=== PATIENT | female | born 1945 | race Caucasian/White ===

== ENCOUNTER 2022-06-13 13:10 | Outpatient (CLI) | payer MEDICARE, SELFPAY | END 2022-06-13 13:11 | disposition home or self-care (01) | PROVIDERS: PCP Family Medicine; Visit Provider Family Medicine | DX: Z00.00 Encounter for general adult medical examination without abnormal findings (principal); I10 Essential (primary) hypertension; E78.5 Hyperlipidemia, unspecified | CPT/HCPCS: 80048; 80061; 84460 ==

== ENCOUNTER 2022-11-07 13:03 | Outpatient (CLI) | payer MEDICARE, SELFPAY ==
--- NOTE | 2022-11-07 13:40 | CRLHL7_ITS ---
For Patients: As a result of the Century Cures Act, medical imaging exams and procedure reports are released immediately into your electronic medical record. You may view this report before your referring provider. If you have questions, please contact your health care provider. BILATERAL SCREENING MAMMOGRAM WITH COMPUTER-AIDED DETECTION AND TOMOSYNTHESIS TECHNIQUE: CC and MLO views were obtained. These mammographic images have been obtained using full-field digital technique. These mammographic images were interpreted with the benefit of computer-aided detection. Breast Tomosynthesis was used in this interpretation. COMPARISON FILM: No previous available. FINDINGS: The breasts are extremely dense, which lowers the sensitivity of mammography IMPRESSION: There is no radiographic evidence for malignancy. ASSESSMENT: BI-RADS Category 2: Benign RECOMMENDATION: Routine screening mammogram in 1 year. A lay language report of this examination will be provided to the patient. Leon Montero M.D. Diagnostic Radiologist [email or web address] TUCKER/Dictated by: Leon Montero MD @ 11/11/2022 11:46:00 AM (Electronically Signed)
== END 2022-11-07 13:04 | disposition home or self-care (01) ==
LOC: MAMMO 13:04
PROVIDERS: PCP Family Medicine; Visit Provider Family Medicine
DX: Z12.31 Encounter for screening mammogram for malignant neoplasm of breast (principal); R92.2 Inconclusive mammogram
CPT/HCPCS: 77063; 77067

== ENCOUNTER 2023-12-11 13:10 | Outpatient (CLI) | payer MEDICARE, SELFPAY | END 2023-12-11 13:11 | disposition home or self-care (01) | LOC: NFLDREF 12-15 14:43 | PROVIDERS: PCP Family Medicine; Referring Provider Family Medicine; Visit Provider Internal Medicine | DX: E78.5 Hyperlipidemia, unspecified (principal); I10 Essential (primary) hypertension | CPT/HCPCS: 80053; 80061 ==

== ENCOUNTER 2023-12-17 13:11 | Outpatient (CLI) | payer MEDICARE, SELFPAY ==
--- OUTSIDE RECORDS SUMMARY | 2023-12-17 13:15 | XMS_ITS | Referral Summary ---
Author Organization [facility] Address [address] [place] [address] Care Team Providers Care Scanning Clerk Name Role Phone Ismael Meadows MD Primary Care Provider +1- [phone] Allergies Active Allergy Reactions Criticality Noted Date Comments Contrast Dye 01/14/2016 Tetracycline Rash Low 01/14/2016 Medications estradiol (ESTRACE) 0.5 MG tablet Take 0.5 mg by mouth daily Active rosuvastatin (CRESTOR) 5 MG tablet Take 5 mg by mouth daily Active amLODIPine (NORVASC) 10 MG tablet Take 10 mg by mouth daily Active multivitamin w/minerals (MULTI-VITAMIN) tablet Take 1 tablet by mouth daily Active aspirin 81 MG EC tablet Take 81 mg by mouth daily Active Ascorbic Acid (VITAMIN C) 500 MG CAPS Take 500 mg by mouth daily (with breakfast) Active Active Problems Problem Noted Date Diagnosed Date Syncope 06/18/2021 Bilateral hand pain 01/14/2016 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 01/14/2016 Social History Tobacco Use Types Packs/Day Years Used Date Smoking Tobacco: Never Smokeless Tobacco: Never Alcohol Use Standard Drinks/Week Comments Yes 4 (1 standard drink = 0.6 oz pur e alcohol) Adolescent Education Answer Date Record ed Getting School Help Needed Not on file 11/23 Comments Unknown Sex and Gender Information Value Date Recorded Sex Assigned at Not on file Legal Sex Female 3:21 AM TYPE COPY EXAMINER Gender Identity Not on file Sexual Orientation Not on file Last Filed Vital Signs Vital Sign Reading Time Taken Comments Blood Pressure 130/63 06/19/2021 8:06 AM CDT Pulse 66 06/19/2021 8:06 AM CDT Temperature 36.4 ??C (97.6 ??F) 06/19/2021 8:06 AM CD T Respiratory Rate 18 06/19/2021 8:06 AM CDT Oxygen Saturation 97% 06/19/2021 8:06 AM CDT Inhaled Oxygen Concentration - - Weight 63.3 kg (139 lb 9.6 oz) 06/18/2021 2:36 P M CDT Height 162.6 cm (5' 4) 06/18/2021 2:36 PM CDT Body Mass Index 23.96 06/18/2021 2:36 PM CDT Plan of Treatment Not on file Procedures Procedure Name Priority Date/Time Associated Diagnosis Comments COMPREHENSIVE METABOLIC PANEL STAT 06/18/2021 4:31 PM CDT from Last 3 Months or Most Recently Relevant to Health Maintenance Results * Comprehensive metabolic panel (06/18/2021 4:31 PM CDT) Sodium 141 136 - 145 mmol/L 06/18/2021 4:59 PM [facility] Potassium 3.9 3.5 - 5.0 mmol/L 06/18/2021 4:59 PM [facility] Chloride 105 98 - 107 mmol/L 06/18/2021 4:59 PM [facility] Carbon Dioxide (CO2) 23 22 - 31 mmol/L 06/18/2021 4:59 PM [facility] Anion Gap 13 5 - 18 mmol/L 06/18/2021 4:59 PM [facility] Urea Nitrogen 19 8 - 28 mg/dL 06/18/2021 4:59 PM [facility] Creatinine 0.76 0.60 - 1.10 mg/dL 06/18/2021 4:59 PM [facility] Calcium 10.4 8.5 - 10.5 mg/dL 06/18/2021 4:59 PM [facility] Glucose 94 70 - 125 mg/dL 06/18/2021 4:59 PM [facility] Alkaline Phosphatase 112 45 - 120 U/L 06/18/2021 4:59 PM [facility] AST 25 0 - 40 U/L 06/18/2021 4:59 PM [facility] ALT 17 0 - 45 U/L 06/18/2021 4:59 PM CDT [facility] Protein Total 7.5 6.0 - 8.0 g/dL 06/18/2021 4:59 PM CDT [facility] Albumin 4.3 3.5 - 5.0 g/dL 06/18/2021 4:59 PM CDT [facility] Bilirubin Total 0.4 0.0 - 1.0 mg/dL 06/18/2021 4:59 PM CDT [facility] GFR Estimate 80 >60 mL/min/1.7 3m2 06/18/2021 4:59 PM [facility] Comment:Effective January 242020 eGFRcr in adults is calculated using the 2020 CKD-EPI creatinine equation which includes age and gender (Manager Game et al., NEJM, DOI: 10.1056/UWCAex9617496) Blood VENOUS LINE / Unknown Venipuncture / Unknown 06/18/2021 4:31 PM CDT 06/18/2021 4:38 PM CDT us Yong Rentreia MD LAB - BLOOD ORDERABLES Final Re sult [facility] [address] [address], [facility] [phone] from Last 3 Months or Most Recently Relevant to Health Maintenance Insurance [facility] MEDICARE Advance Directives For more information, please contact: [phone] * Full Code (Latest Code Status on File) Date Activated Date Inactivated Comments 06/18/2021 10:24 PM 06/19/2021 6:58 PM All basic a nd advanced life-sustaining interventions are performed as appropriate Question Answer Comments Code status determined by: Discussion with eleni nt/ legal decision maker Care Teams Scanning Clerk Relationship Specialty Start Date End Date Ismael Meadows MD [address] [place] [address] PCP - General Family Medicine 06/19/21
--- OUTSIDE RECORDS SUMMARY | 2023-12-17 13:15 | XMS_ITS | Referral Summary ---
Author Organization [facility] Address [address] [place] [address] Care Team Providers Care Slitting Machine Operator Name Role Phone Unknown, Md Primary Care Provider Unavailabl e Unknown, Md Unavailable Unavailable Allergies Active Allergy Reactions Criticality Noted Date Comments Iodinated Contrast Media Hives High 07/30/2009 Lisinopril Cough 01/10/2021 Tetracycline Rash Medium 07/30/2009 Medications Medication Sig Dispensed Refills Start Date End Date Status vitamin e (AQUASOL E) 400 unit oral capsule Daily. Act nikia aspirin 81 mg oral enteric coated tablet Daily. 05/31/2010 Act nikia multivitamin (MULTI-DAY) oral tablet Daily. 05/31/2010 A ctive calcium carbonate-vitamin D3 500 mg, 1250 mg,-200 units (OSCAL-D) oral tablet take 1 by Oral route every day Active fish oil (FISH OIL) 360-1,200 mg oral Cap Daily. Act nikia cholecalciferol (VITAMIN D3) 25 mcg (1,000 unit) oral Cap Take 1,000 Units by mouth once daily. Active acetaminophen (TYLENOL) 500 mg oral tablet Take 1,000 mg by mouth every 6 (six) hours as needed. Active amLODIPine (NORVASC) 10 mg oral tabletIndications:Essen tial hypertension Take 1 tablet (10 mg) by mouth once daily. 30 tablet 01/30/2022 Active rosuvastatin (CRESTOR) 5 mg oral tabletIndications:Other hyperlipidemia Take 1 tablet (5 mg) by mouth every morning. 30 tablet 01/30/2022 Active estradioL (ESTRACE) 0.5 mg oral tabletIndications:Estro gen deficiency,Symptomatic menopausal or female climacteric states Take 1 tablet (0.5 mg) by mouth once daily. 30 tablet 01/30/2022 Active Active Problems Problem Noted Date Diagnosed Date Osteopenia, unspecified location 10/06/2019 JUAN ADVID-inhibitor cough 10/06/2019 Bunion 04/09/2018 Cataract 04/09/2018 Cystocele, midline 04/09/2018 Estrogen deficiency 04/09/2018 Heart palpitations 04/09/2018 Symptomatic menopausal or female climacteric sta marin 04/09/2018 Other hyperlipidemia 08/11/2012 Essential hypertension 02/23/2009 Gastroesophageal reflux disease 02/23/2009 Immunizations Name Administration Dates Next Due Influenza High Dose (Fluzone Quadrivalent PF) 11/18/2016,11/07/2014 Influenza recombinant (FluBl ok Quadrivalent PF) 11/25/2012,11/08/2009 Influenza split virus quadrivalent 11/20,11/26/2012,11/12/2011,2010,11/08/2009,11/09/2008,11/26/2007 Pfizer 12+ Yrs Monovalent CO VID Vaccine (purple cap) 05/21/2020,04/29/2020 Pneumococcal PCV13 08/23/2014 Pneumococcal PPSV23 07/01/2007 Tdap 07/31/2010 Zoster Live 07/01/2007 Social History Tobacco Use Types Packs/Day Years Used Date Smoking Tobacco: Never Smokeless Tobacco: Never Alcohol Use Standard Drinks/Week Comments Yes 0 (1 standard drink = 0.6 oz pur e alcohol) Sex and Gender Information Value Date Recorded Sex Assigned at Not on file Gender Identity Not on file Sexual Orientation Not on file Last Filed Vital Signs Vital Sign Reading Time Taken Comments Blood Pressure 140/76 01/10/2021 10:56 AM EMPLOYEE RELATIONS DIRECTOR Pulse 74 01/10/2021 10:16 AM EMPLOYEE RELATIONS DIRECTOR Temperature - - Respiratory Rate - - Oxygen Saturation 97% 01/10/2021 10:16 AM EMPLOYEE RELATIONS DIRECTOR Inhaled Oxygen Concentration - - Weight 64 kg (141 lb) 01/10/2021 10:16 AM EMPLOYEE RELATIONS DIRECTOR Height 160.7 cm (5' 3.25) 01/10/2021 10:[address] Body Mass Index 24.78 01/10/2021 10:16 AM EMPLOYEE RELATIONS DIRECTOR Plan of Treatment Not on file Procedures Procedure Name Priority Date/Time Associated Diagnosis Comments XR BONE DENSITY-SPINE,HIP & FOREARM Routine 01/15/2021 12:48 PM EMPLOYEE RELATIONS DIRECTOR Osteopenia, unspecified location from Last 3 Months or Most Recently Relevant to Health Maintenance Results * XR BONE DENSITY-SPINE,HIP & FOREARM (01/15/2021 12:48 PM EMPLOYEE RELATIONS DIRECTOR) Anatomical Region Laterality Modality Extremity Radiographic Shannon ging 01/15/2021 12:5 6 PM EMPLOYEE RELATIONS DIRECTOR Impressions 01/15/2021 12:57 PM EMPLOYEE RELATIONS DIRECTOR IMPRESSION: Osteopenia. WHO Classification of bone density for post-menopausal women, and men over 50 years of age, is as follows: Normal bone density: T score greater than -1.0. Osteopenia (Low bone density): T score between -1.0 and -2.5. Osteoporosis: T score less than -2.5. ?? REPORT SIGNED BY DR. Alexander Dos Santos Narrative 01/15/2021 12:57 PM EMPLOYEE RELATIONS DIRECTOR EXAM: DEXA BONE DENSITY STUDY DATE: 01/15/2021 12:20 PM COMPARISON: 10/11/2018 CLINICAL DATA: Osteoporosis screening. Post-menopausal. TECHNIQUE: A bone density evaluation using DEXA (dual energy x-ray absorptiometry) was performed for your patient at the [facility] in [place] using a Hologic (Discovery) unit. FINDINGS: Lumbar Spine (L1 and L2): Average BMD (g/cm2): 1.044 T-score: 0.6 Z-score: 3.0 Left Femoral Neck: Average BMD (g/cm2): 0.713 T-score: -1.2 Z-score: 1.0 Left Forearm: Average BMD (g/cm2): 0.534 T-score: -0.3 Z-score: 2.6 Vertebral assessment: frontal and lateral scanograms demonstrate no compression deformities in the thoracic or lumbar spine. Compared to the previous study, the measured bone density in the upper lumbar spine has increased by 4%, the measured bone density in the left hip has decreased by 2%, and the measured bone density in the left forearm has not changed significantly. FRAX (10-year Fracture Risk calculated for an untreated patient): the risks of a major osteoporotic fracture and a hip fracture are, respectively, 12% and 2%. Procedure Note Alexander Dos Santos MD - 01/15/2021 EXAM: DEXA BONE DENSITY STUDY DATE: 01/15/2021 12:20 PM COMPARISON: 10/11/2018 CLINICAL DATA: Osteoporosis screening. Post-menopausal. TECHNIQUE: A bone density evaluation using DEXA (dual energy x- rayabsorptiometry) was performed for your patient at the [facility] using a Hologic (Discovery) unit. FINDINGS: Lumbar Spine (L1 and L2): Average BMD (g/cm2): 1.044 T-score: 0.6 Z-score: 3.0 Left Femoral Neck: Average BMD (g/cm2): 0.713 T-score: -1.2 Z-score: 1.0 Left Forearm: Average BMD (g/cm2): 0.534 T-score: -0.3 Z-score: 2.6 Vertebral assessment: frontal and lateral scanograms demonstrate nocompression deformities in the thoracic or lumbar spine. Compared to theprevious study, the measured bone density in the upper lumbar spine hasincreased by 4%, the measured bone density in the left hip has decreasedby 2%, and the measured bone density in the left forearm has not changedsignificantly. FRAX (10-year Fracture Risk calculated for an untreated patient): therisks of a major osteoporotic fracture and a hip fracture are,respectively, 12% and 2%. IMPRESSION IMPRESSION: Osteopenia. WHO Classification of bone density for post-menopausal women, and men over50 years of age, is as follows: Normal bone density: T score greater than -1.0. Osteopenia (Low bone density): T score between -1.0 and -2.5. Osteoporosis: T score less than -2.5. REPORT SIGNED BY DR. Alexander Dos Santos Ismael Meadows MD XRAY ORDERABLE from Last 3 Months or Most Recently Relevant to Health Maintenance Care Teams Slitting Machine Operator Relationship Specialty Start Date End Date Unknown, NO ADDRESS/PHONE/FAX AFFILIATED PCP - General 12/18/22 Unknown, NO ADDRESS/PHONE/FAX AFFILIATED PCP - Primary Care Clinic 12/18/22
--- OUTSIDE RECORDS SUMMARY | 2023-12-17 13:15 | XMS_ITS | Clinical Summary ---
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 Gender Identity Not on file Sexual Orientation [...] 06/18/2021 2:36 PM CDT Plan of Treatment Health Maintenance Due Date Last Done Comments ADVANCE CARE PLANNING 1945 ANNUAL REVIEW OF HM ORDERS 1945 DEXA 1945 LIPID 1943 ZOSTER IMMUNIZATION (2 of 3) 08/26/2007 07/01/2007 FALL RISK ASSESSMENT 2008 RSV VACCINE (1 - 1-dose 75+ series) 2018 Pneumococcal Vaccine: 65+ Years (3 of 3 - PPSV23 or PCV20) 08/24/2019 08/23/2014, 07/01/2007 DTAP/TDAP/TD IMMUNIZATION (2 - Td or Tdap) 07/31/2020 07/31/2010 MEDICARE ANNUAL WELLNESS VISIT 01/10/2022 01/10/2021, 10/06/2019, 04/13/2018 PHQ-2 (once per calendar year) 2023 COVID-19 Vaccine (3 - season) 2023 05/21/2020, 04/29/2020 INFLUENZA VACCINE (#1) 2023 , 11/25/2019, 12/07/2018, Additional history exists GLUCOSE 06/18/2024 06/18/2021, 06/01/2006 HPV IMMUNIZATION Aged Out No longer e ligible based on patient's age to complete this topic MENINGITIS IMMUNIZATION Aged Out No l onger eligible based on patient's age to complete this topic RSV MONOCLONAL ANTIBODY Aged Out No l onger eligible based on patient's age to complete this topic Procedures Procedure Name Priority Date/Time Associated Diagnosis Comments COMPREHENSIVE METABOLIC PANEL STAT 06/18/2021 4:31 PM CDT from Last 3 Months or Most Recently Relevant to Health Maintenance Results * Comprehensive metabolic panel (06/18/2021 4:31 PM CDT) Sodium 141 136 - 145 mmol/L 06/18/2021 4:59 PM [facility] Potassium 3.9 3.5 - 5.0 mmol/L 06/18/2021 4:59 PM [facility] Chloride 105 98 - 107 mmol/L 06/18/2021 4:59 PM [facility] Carbon Dioxide (CO2) 23 22 - 31 mmol/L 06/18/2021 4:59 PM [facility] Anion Gap 13 5 - 18 mmol/L 06/18/2021 4:59 PM [facility] Urea Nitrogen 19 8 - 28 mg/dL 06/18/2021 4:59 PM [facility] Creatinine 0.76 0.60 - 1.10 mg/dL 06/18/2021 4:59 PM [facility] Calcium 10.4 8.5 - 10.5 mg/dL 06/18/2021 4:59 PM [facility] Glucose 94 70 - 125 mg/dL 06/18/2021 4:59 PM [facility] Alkaline Phosphatase 112 45 - 120 U/L 06/18/2021 4:59 PM [facility] AST 25 0 - 40 U/L 06/18/2021 4:59 PM [facility] ALT 17 0 - 45 U/L 06/18/2021 4:59 PM [facility] Protein Total 7.5 6.0 - 8.0 g/dL 06/18/2021 4:59 PM [facility] Albumin 4.3 3.5 - 5.0 g/dL 06/18/2021 4:59 PM [facility] Bilirubin Total 0.4 0.0 - 1.0 mg/dL 06/18/2021 4:59 PM [facility] GFR Estimate 80 >60 mL/min/1.7 3m2 06/18/2021 4:59 PM [facility] Comment:Effective January 242020 eGFRcr in adults is calculated using the 2020 CKD-EPI creatinine equation which includes age and gender (Alivia et al., NEJM, DOI: 10.1056/LZDXek0300897) Blood VENOUS LINE / Unknown Venipuncture / Unknown 06/18/2021 4:31 PM CDT 06/18/2021 4:38 PM CDT us Yong Renteria MD LAB - BLOOD ORDERABLES Final Re sult [facility] [address] [place] [address], [facility] [phone] from Last 3 Months or Most Recently Relevant to Health Maintenance Insurance [facility] MEDIC[facility] Advance Directives For more information, please contact: [phone] * Full Code (Latest Code Status on File) Date Activated Date Inactivated Comments 06/18/2021 10:24 PM 06/19/2021 6:58 PM All basic a nd advanced life-sustaining interventions are performed as appropriate Question Answer Comments Code status determined by: Discussion with patie nt/ legal decision maker Care Teams Breaker Up Machine Operator Relationship Specialty Start Date End Date Ismael Meadows MD [facility] [address] [facility] [place] [address] PCP - General Family Medicine 06/19/21
--- OUTSIDE RECORDS SUMMARY | 2023-12-17 13:15 | XMS_ITS | Clinical Summary ---
Author Organization [facility] Address [address] [place] [address] Care Team Providers Care Electrical Plumbing Supervisor Name Role Phone Unknown, Md Primary Care [...] Diagnosed Date Osteopenia, unspecified location 10/06/2019 JUAN DAVID-inhibitor cough 10/06/2019 Bunion 04/09/2018 Cataract 04/09/2018 Cystocele, [...] PPSV23 07/01/2007 Tdap 07/31/2010 Zoster Live 07/01/2007 Family History Medical History Relation Comments Diabetes Brother Heart Disease Brother High Blood Pressure Brother Breast Cancer Daughter Heart Disease Father Coronary Heart Disease Mother Heart Disease Mother [place] Allergies Sister Relation Status Comments Brother Daughter Father Mother Sister Social History Tobacco Use Types Packs/Day Years [...] Comments Blood Pressure 140/76 01/10/2021 10:56 AM DIPPER AND DRIER Pulse 74 01/10/2021 10:16 AM DIPPER AND DRIER Temperature - - Respiratory Rate - - Oxygen Saturation 97% 01/10/2021 10:16 AM DIPPER AND DRIER Inhaled Oxygen Concentration - - Weight 64 kg (141 lb) 01/10/2021 10:16 AM DIPPER AND DRIER Height 160.7 cm (5' 3.25) 01/10/2021 10:[address] Body Mass Index 24.78 01/10/2021 10:16 AM DIPPER AND DRIER Plan of Treatment Health Maintenance Due Date Last Done Comments Depression Assessment (PHQ-2) 1946 Zoster Vaccine (2 of 3) 08/26/2007 07/01/2007 RSV Vaccines (1 - 1-dose 75+ series) 2018 Yearly Review of HCD 04/13/2019 04/13/2018 Pneumococcal 65+ (3 of 3 - P PSV23 or PCV20) 08/24/2019 08/23/2014, 07/01/2007 Adult Tetanus Booster 07/31/2020 07/31/2010 Colonoscopy 09/26/2020 09/27/2015 (Prev iously completed), 08/19/2010 (Previously completed) Mammogram Screening 11/12/2021 11/12/2020, 09/18/2016 (Previously completed) Medicare Wellness Visit 01/10/2022 01/10/2021, 10/05 Osteoporosis Screening 01/15/2023 , 10/01/2018, 08/29/2014 (Previously completed) COVID-19 Vaccine (3 - 2023-2 5 season) 2023 05/21/2020, 04/29/2020 Influenza Vaccine (#1) 2023 , 11/25/2019, 12/07/2018, Additional history exists Procedures Procedure Name Priority Date/Time Associated Diagnosis Comments XR BONE DENSITY-SPINE,HIP & FOREARM Routine 01/15/2021 12:48 PM DIPPER AND DRIER Osteopenia, unspecified location from Last 3 Months or Most Recently Relevant to Health Maintenance Results * XR BONE DENSITY-SPINE,HIP & FOREARM (01/15/2021 12:48 PM DIPPER AND DRIER) Anatomical Region Laterality Modality Extremity Radiographic Shannon ging 01/15/2021 12:5 6 PM DIPPER AND DRIER Impressions 01/15/2021 12:57 PM DIPPER AND DRIER IMPRESSION: Osteopenia. WHO Classification of bone density for post-menopausal women, and men over 50 years of age, is as follows: Normal bone density: T score greater than -1.0. Osteopenia (Low bone density): T score between -1.0 and -2.5. Osteoporosis: T score less than -2.5. ?? REPORT SIGNED BY DR. Alexander Dos Santos Narrative 01/15/2021 12:57 PM DIPPER AND DRIER EXAM: DEXA BONE DENSITY STUDY DATE: 01/15/2021 12:20 PM COMPARISON: 10/11/2018 CLINICAL DATA: Osteoporosis screening. Post-menopausal. TECHNIQUE: A bone density evaluation using DEXA (dual energy x-ray absorptiometry) was performed for your patient at the [facility] using a Hologic (Discovery) unit. FINDINGS: [...] was performed for your patient at the [facility] using a Hologic (Discovery) unit. FINDINGS: Lumbar [...] Recently Relevant to Health Maintenance Care Teams Electrical Plumbing Supervisor Relationship Specialty Start Date End Date Bennett, NO ADDRESS/PHONE/FAX AFFILIATED PCP - General 12/18/22 Bennett, NO ADDRESS/PHONE/FAX AFFILIATED PCP - Primary Care Clinic 12/18/22
== END 2023-12-17 13:12 | disposition home or self-care (01) ==
PROVIDERS: PCP Family Medicine; Visit Provider Internal Medicine
DX: I10 Essential (primary) hypertension (principal); E78.5 Hyperlipidemia, unspecified; E83.52 Hypercalcemia
CPT/HCPCS: 82310; 83970

== ENCOUNTER 2023-12-22 10:39 | Outpatient (CLI) | payer MEDICARE, SELFPAY ==
--- OUTSIDE RECORDS SUMMARY | 2023-12-23 12:02 | XMS_ITS | Clinical Summary ---
Author Organization [facility] Address [place], [place] [address] Care Team Providers Care Clay Molder Name Role Phone Pcp, No Primary Care Provider Unavailabl e Allergies Active Allergy Reactions Criticality Noted Date Comments Diatrizoate Allergen Respiratory Depression Lisinopril Cough 01/10/2021 Tetracycline Rash Medium 07/30/2009 Medications Medication Sig Dispensed Refills Start Date End Date Status amLODIPine (NORVASC) 10 mg tablet Take 1 Tablet by mouth once daily. 02/07/2021 Active calcium with vitamin D3 (OS-ALICIA 500 + D) tablet take 1 by Oral route every day Active estradioL (ESTRACE) 0.5 mg tablet Take 0.5 mg by mouth. 01/12/2021 Active rosuvastatin (CRESTOR) 5 mg tablet Take 5 mg by mouth. 01/10/2021 Active Active Problems No known active problems Social History Tobacco Use Types Packs/Day Years Used Date Smoking Tobacco: Never Smokeless Tobacco: Never Sex and Gender Information Value Date Recorded Sex Assigned at Not on file Gender Identity Not on file Sexual Orientation Not on file Obstetrics History Last Filed Vital Signs Vital Sign Reading Time Taken Comments Blood Pressure 150/72 06/18/2021 1:24 PM CDT Pulse 78 06/18/2021 1:24 PM CDT Temperature 36.8 ??C (98.2 ??F) 06/18/2021 1:24 PM CD T Respiratory Rate 16 06/18/2021 1:24 PM CDT Oxygen Saturation 98% 06/18/2021 1:24 PM CDT Inhaled Oxygen Concentration - - Weight - - Height - - Body Mass Index - - Plan of Treatment Health Maintenance Due Date Last Done Comments Tdap 1954 Depression screening for age 12+ 1955 BMI (ht and wt on same day) for age 18+ 1961 Tetanus booster 1963 Zoster (shingles) series for age 50+ (1 of 2) 1993 DEXA/DXA scan for age 65+ 2008 Medicare Wellness for age 65+ 2008 Pneumococcal series for age 65+ (1 of 1 - PCV) 2008 RSV vaccine for adults or pr egnancy (1 - 1-dose 75+ series) 2018 COVID-19 vaccine series ( season) 2023 05/21/2020, 04/29/2020 Influenza for age 65+ 10/25/2023 Care Teams Clay Molder Relationship Specialty Start Date End Date Pcp, No . PCP - General 06/18/21
--- OUTSIDE RECORDS SUMMARY | 2023-12-23 12:02 | XMS_ITS | Clinical Summary ---
Author Organization [facility] Address [address] [place] [address] Care Team Providers Care Lamp Cleaner Name Role Phone Unknown, Md Primary Care [...] Coronary Heart Disease Mother Heart Disease Mother [place] Allergies Sister Relation Status Comments Brother Daughter [...] Comments Blood Pressure 140/76 01/10/2021 10:56 AM PERMIT REVIEW ASSISTANT Pulse 74 01/10/2021 10:16 AM PERMIT REVIEW ASSISTANT Temperature - - Respiratory Rate - - Oxygen Saturation 97% 01/10/2021 10:16 AM PERMIT REVIEW ASSISTANT Inhaled Oxygen Concentration - - Weight 64 kg (141 lb) 01/10/2021 10:16 AM PERMIT REVIEW ASSISTANT Height 160.7 cm (5' 3.25) 01/10/2021 10:[address] Body Mass Index 24.78 01/10/2021 10:16 AM PERMIT REVIEW ASSISTANT Plan of Treatment Health Maintenance Due Date [...] DENSITY-SPINE,HIP & FOREARM Routine 01/15/2021 12:48 PM PERMIT REVIEW ASSISTANT Osteopenia, unspecified location from Last 3 Months or Most Recently Relevant to Health Maintenance Results * XR BONE DENSITY-SPINE,HIP & FOREARM (01/15/2021 12:48 PM PERMIT REVIEW ASSISTANT) Anatomical Region Laterality Modality Extremity Radiographic Shannon ging 01/15/2021 12:5 6 PM PERMIT REVIEW ASSISTANT Impressions 01/15/2021 12:57 PM PERMIT REVIEW ASSISTANT IMPRESSION: Osteopenia. WHO Classification of bone density for post-menopausal women, and men over 50 years of age, is as follows: Normal bone density: T score greater than -1.0. Osteopenia (Low bone density): T score between -1.0 and -2.5. Osteoporosis: T score less than -2.5. ?? REPORT SIGNED BY DR. Alexander Dos Santos Narrative 01/15/2021 12:57 PM PERMIT REVIEW ASSISTANT EXAM: DEXA BONE DENSITY STUDY DATE: 01/15/2021 12:20 PM COMPARISON: 10/11/2018 CLINICAL DATA: Osteoporosis screening. Post-menopausal. TECHNIQUE: A bone density evaluation using DEXA (dual energy x-ray absorptiometry) was performed for your patient at the [facility] using a Hologic (Discovery) unit. [...] was performed for your patient at the [facility] using a Hologic (Discovery) unit. FINDINGS: [...] Recently Relevant to Health Maintenance Care Teams Lamp Cleaner Relationship Specialty Start Date End Date Bennett, NO ADDRESS/PHONE/FAX AFFILIATED PCP - General 12/18/22 Bennett, NO ADDRESS/PHONE/FAX AFFILIATED PCP - Primary Care Clinic 12/18/22
--- OUTSIDE RECORDS SUMMARY | 2023-12-23 12:02 | XMS_ITS | Clinical Summary ---
Author Organization [facility] Address [address] [place] [address] Care Team Providers Care Manager Group Name Role Phone Ismael Meadows MD Primary Care Provider +1- [phone] Allergies Active Allergy Reactions Criticality Noted Date [...] on file Legal Sex Female 3:21 AM BILL HIKER Gender Identity Not on file Sexual Orientation [...] 136 - 145 mmol/L 06/18/2021 4:59 PM [facility] Potassium 3.9 3.5 - 5.0 mmol/L 06/18/2021 4:59 PM [facility] Chloride 105 98 - 107 mmol/L 06/18/2021 4:59 PM [facility] Carbon Dioxide (CO2) 23 22 - 31 mmol/L 06/18/2021 4:59 PM [facility] Anion Gap 13 5 - 18 mmol/L 06/18/2021 4:59 PM [facility] Urea Nitrogen 19 8 - 28 mg/dL 06/18/2021 4:59 PM [facility] Creatinine 0.76 0.60 - 1.10 mg/dL 06/18/2021 4:59 PM [facility] Calcium 10.4 8.5 - 10.5 mg/dL 06/18/2021 4:59 PM [facility] Glucose 94 70 - 125 mg/dL 06/18/2021 4:59 PM [facility] Alkaline Phosphatase 112 45 - 120 U/L 06/18/2021 4:59 PM [facility] AST 25 0 - 40 U/L 06/18/2021 4:59 PM [facility] ALT 17 0 - 45 U/L 06/18/2021 4:59 PM [facility] Protein Total 7.5 6.0 - 8.0 g/dL 06/18/2021 4:59 PM [facility] Albumin 4.3 3.5 - 5.0 g/dL 06/18/2021 4:59 PM [facility] Bilirubin Total 0.4 0.0 - 1.0 mg/dL 06/18/2021 4:59 PM [facility] GFR Estimate 80 >60 mL/min/1.7 3m2 06/18/2021 4:59 PM [facility] Comment:Effective January 242020 eGFRcr in adults is calculated using the 2020 CKD-EPI creatinine equation which includes age and gender (Alivia et al., NEJM, DOI: 10.1056/FNLRmf9106827) Blood VENOUS LINE / Unknown Venipuncture / Unknown 06/18/2021 4:31 PM CDT 06/18/2021 4:38 PM CDT us Yong Renteria MD LAB - BLOOD ORDERABLES Final Re sult [facility] [address] [place] [address], [facility] [phone] from Last 3 Months or Most Recently Relevant to Health Maintenance Insurance [facility] MEDIC[facility] Advance Directives For more information, please contact: [phone] * Full Code (Latest Code Status on File) Date Activated Date Inactivated Comments 06/18/2021 10:24 PM 06/19/2021 6:58 PM All basic a nd advanced life-sustaining interventions are performed as appropriate Question Answer Comments Code status determined by: Discussion with patie nt/ legal decision maker Care Teams Manager Group Relationship Specialty Start Date End Date Ismael Meadows MD [facility] [address] [facility] [place] [address] PCP - General Family Medicine 06/19/21
--- OUTSIDE RECORDS SUMMARY | 2023-12-23 12:02 | XMS_ITS | Referral Summary ---
Author Organization [facility] Address [address] [place] [address] Care Team Providers Care Bank Vault Attendant Name Role Phone Unknown, Md Primary Care [...] Comments Blood Pressure 140/76 01/10/2021 10:56 AM LAUNDRY ATTENDANT Pulse 74 01/10/2021 10:16 AM LAUNDRY ATTENDANT Temperature - - Respiratory Rate - - Oxygen Saturation 97% 01/10/2021 10:16 AM LAUNDRY ATTENDANT Inhaled Oxygen Concentration - - Weight 64 kg (141 lb) 01/10/2021 10:16 AM LAUNDRY ATTENDANT Height 160.7 cm (5' 3.25) 01/10/2021 10:[address] Body Mass Index 24.78 01/10/2021 10:16 AM LAUNDRY ATTENDANT Plan of Treatment Not on file Procedures Procedure Name Priority Date/Time Associated Diagnosis Comments XR BONE DENSITY-SPINE,HIP & FOREARM Routine 01/15/2021 12:48 PM LAUNDRY ATTENDANT Osteopenia, unspecified location from Last 3 Months or Most Recently Relevant to Health Maintenance Results * XR BONE DENSITY-SPINE,HIP & FOREARM (01/15/2021 12:48 PM LAUNDRY ATTENDANT) Anatomical Region Laterality Modality Extremity Radiographic Shannon ging 01/15/2021 12:5 6 PM LAUNDRY ATTENDANT Impressions 01/15/2021 12:57 PM LAUNDRY ATTENDANT IMPRESSION: Osteopenia. WHO Classification of bone density for post-menopausal women, and men over 50 years of age, is as follows: Normal bone density: T score greater than -1.0. Osteopenia (Low bone density): T score between -1.0 and -2.5. Osteoporosis: T score less than -2.5. ?? REPORT SIGNED BY DR. Alexander Dos Santos Narrative 01/15/2021 12:57 PM LAUNDRY ATTENDANT EXAM: DEXA BONE DENSITY STUDY DATE: 01/15/2021 12:20 PM COMPARISON: 10/11/2018 CLINICAL DATA: Osteoporosis screening. Post-menopausal. TECHNIQUE: A bone density evaluation using DEXA (dual energy x-ray absorptiometry) was performed for your patient at the [facility] in [place] using a Hologic (Discovery) unit. FINDINGS: Lumbar [...] was performed for your patient at the [facility] using a Hologic (Discovery) unit. [...] Recently Relevant to Health Maintenance Care Teams Bank Vault Attendant Relationship Specialty Start Date End Date Unknown, NO ADDRESS/PHONE/FAX AFFILIATED PCP - General 12/18/22 Unknown, NO ADDRESS/PHONE/FAX AFFILIATED PCP - Primary Care Clinic 12/18/22
--- OUTSIDE RECORDS SUMMARY | 2023-12-23 12:02 | XMS_ITS | Referral Summary ---
Author Organization [facility] Address [address] [place] [address] Care Team Providers Care Teamcenter Solution Architect Name Role Phone Ismael Meadows MD Primary Care Provider +1- [phone] Allergies Active Allergy Reactions Criticality Noted Date [...] on file Legal Sex Female 3:21 AM DRAFTER ELECTRONIC Gender Identity Not on file Sexual Orientation [...] 136 - 145 mmol/L 06/18/2021 4:59 PM [facility] Potassium 3.9 3.5 - 5.0 mmol/L 06/18/2021 4:59 PM [facility] Chloride 105 98 - 107 mmol/L 06/18/2021 4:59 PM [facility] Carbon Dioxide (CO2) 23 22 - 31 mmol/L 06/18/2021 4:59 PM [facility] Anion Gap 13 5 - 18 mmol/L 06/18/2021 4:59 PM [facility] Urea Nitrogen 19 8 - 28 mg/dL 06/18/2021 4:59 PM [facility] Creatinine 0.76 0.60 - 1.10 mg/dL 06/18/2021 4:59 PM [facility] Calcium 10.4 8.5 - 10.5 mg/dL 06/18/2021 4:59 PM [facility] Glucose 94 70 - 125 mg/dL 06/18/2021 4:59 PM [facility] Alkaline Phosphatase 112 45 - 120 U/L 06/18/2021 4:59 PM [facility] AST 25 0 - 40 U/L 06/18/2021 4:59 PM [facility] ALT 17 0 - 45 U/L 06/18/2021 4:59 PM CDT [facility] Protein Total 7.5 6.0 - 8.0 g/dL 06/18/2021 4:59 PM CDT [facility] Albumin 4.3 3.5 - 5.0 g/dL 06/18/2021 4:59 PM CDT [facility] Bilirubin Total 0.4 0.0 - 1.0 mg/dL 06/18/2021 4:59 PM CDT [facility] GFR Estimate 80 >60 mL/min/1.7 3m2 06/18/2021 4:59 PM [facility] Comment:Effective January 242020 eGFRcr in adults is calculated using the 2020 CKD-EPI creatinine equation which includes age and gender (Hydrotreater Operator et al., NEJM, DOI: 10.1056/[id number]) Blood VENOUS LINE / Unknown Venipuncture / Unknown 06/18/2021 4:31 PM CDT 06/18/2021 4:38 PM CDT us Yong Renteria MD LAB - BLOOD ORDERABLES Final Re sult [facility] [address] [facility] [place] [address], [facility] [phone] from Last 3 Months or Most Recently Relevant to Health Maintenance Insurance [facility] MEDICARE Advance Directives For more information, please contact: [phone] * Full Code (Latest Code Status on File) Date Activated Date Inactivated Comments 06/18/2021 10:24 PM 06/19/2021 6:58 PM All basic a nd advanced life-sustaining interventions are performed as appropriate Question Answer Comments Code status determined by: Discussion with eleni nt/ legal decision maker Care Teams Teamcenter Solution Architect Relationship Specialty Start Date End Date Ismael Meadows MD [address] [place] [address] PCP - General Family Medicine 06/19/21
== END 2023-12-22 10:40 | disposition home or self-care (01) ==
PROVIDERS: PCP Family Medicine; Referring Provider Family Medicine; Visit Provider Internal Medicine
DX: E83.52 Hypercalcemia (principal)
CPT/HCPCS: 82306; 82397; 82652

== ENCOUNTER 2024-01-06 15:06 | Outpatient (CLI) | payer MEDICARE, SELFPAY ==
--- OUTSIDE RECORDS SUMMARY | 2024-01-06 15:09 | XMS_ITS | Referral Summary ---
Author Organization [facility] Address [address] [place] [address] Care Team Providers Care Forest Officer Name Role Phone Ismael Meadows MD Primary Care Provider +1- [phone] Allergies Active Allergy Reactions Criticality Noted Date [...] on file Legal Sex Female 3:21 AM INTERNATIONAL EDITORIAL PRODUCER Gender Identity Not on file Sexual Orientation [...] 136 - 145 mmol/L 06/18/2021 4:59 PM [facility] Potassium 3.9 3.5 - 5.0 mmol/L 06/18/2021 4:59 PM [facility] Chloride 105 98 - 107 mmol/L 06/18/2021 4:59 PM [facility] Carbon Dioxide (CO2) 23 22 - 31 mmol/L 06/18/2021 4:59 PM [facility] Anion Gap 13 5 - 18 mmol/L 06/18/2021 4:59 PM [facility] Urea Nitrogen 19 8 - 28 mg/dL 06/18/2021 4:59 PM [facility] Creatinine 0.76 0.60 - 1.10 mg/dL 06/18/2021 4:59 PM [facility] Calcium 10.4 8.5 - 10.5 mg/dL 06/18/2021 4:59 PM [facility] Glucose 94 70 - 125 mg/dL 06/18/2021 4:59 PM [facility] Alkaline Phosphatase 112 45 - 120 U/L 06/18/2021 4:59 PM [facility] AST 25 0 - 40 U/L 06/18/2021 4:59 PM [facility] ALT 17 0 - 45 U/L 06/18/2021 4:[address] [facility] Protein Total 7.5 6.0 - 8.0 g/dL 06/18/2021 4:[address] [facility] Albumin 4.3 3.5 - 5.0 g/dL 06/18/2021 4:[address] [facility] Bilirubin Total 0.4 0.0 - 1.0 mg/dL 06/18/2021 4:[address] [facility] GFR Estimate 80 >60 mL/min/1.7 3m2 06/18/2021 4:59 PM [facility] Comment:Effective January 242020 eGFRcr in adults is calculated using the 2020 CKD-EPI creatinine equation which includes age and gender (Conveyor Line Battery Charger et al., NEJM, DOI: 10.1056/[id number]) Blood VENOUS LINE / Unknown Venipuncture / Unknown 06/18/2021 4:31 PM CDT 06/18/2021 4:38 PM CDT us Yong Renteria MD LAB - BLOOD ORDERABLES Final Re sult [facility] [address] [facility] [place] [address], [facility] [phone] from Last 3 Months or Most Recently Relevant to Health Maintenance Insurance [facility] MEDICARE Advance Directives For more information, please contact: [phone] * Full Code (Latest Code Status on File) Date Activated Date Inactivated Comments 06/18/2021 10:24 PM 06/19/2021 6:58 PM All basic a nd advanced life-sustaining interventions are performed as appropriate Question Answer Comments Code status determined by: Discussion with eleni nt/ legal decision maker Care Teams Forest Officer Relationship Specialty Start Date End Date Ismael Meadows MD [address] [place] [address] PCP - General Family Medicine 06/19/21
--- OUTSIDE RECORDS SUMMARY | 2024-01-06 15:09 | XMS_ITS | Clinical Summary ---
Author Organization [facility] Address [address] [place] [address] Care Team Providers Care Dressage Judge Name Role Phone Ismael Meadows MD Primary Care Provider +1- [phone] Allergies Active Allergy Reactions Criticality Noted Date [...] on file Legal Sex Female 3:21 AM STATISTICAL CONSULTANT Gender Identity Not on file Sexual Orientation [...] 136 - 145 mmol/L 06/18/2021 4:59 PM [facility] Potassium 3.9 3.5 - 5.0 mmol/L 06/18/2021 4:59 PM [facility] Chloride 105 98 - 107 mmol/L 06/18/2021 4:59 PM [facility] Carbon Dioxide (CO2) 23 22 - 31 mmol/L 06/18/2021 4:59 PM [facility] Anion Gap 13 5 - 18 mmol/L 06/18/2021 4:59 PM [facility] Urea Nitrogen 19 8 - 28 mg/dL 06/18/2021 4:59 PM [facility] Creatinine 0.76 0.60 - 1.10 mg/dL 06/18/2021 4:59 PM [facility] Calcium 10.4 8.5 - 10.5 mg/dL 06/18/2021 4:59 PM [facility] Glucose 94 70 - 125 mg/dL 06/18/2021 4:59 PM [facility] Alkaline Phosphatase 112 45 - 120 U/L 06/18/2021 4:59 PM [facility] AST 25 0 - 40 U/L 06/18/2021 4:59 PM [facility] ALT 17 0 - 45 U/L 06/18/2021 4:59 PM [facility] Protein Total 7.5 6.0 - 8.0 g/dL 06/18/2021 4:59 PM [facility] Albumin 4.3 3.5 - 5.0 g/dL 06/18/2021 4:59 PM [facility] Bilirubin Total 0.4 0.0 - 1.0 mg/dL 06/18/2021 4:59 PM [facility] GFR Estimate 80 >60 mL/min/1.7 3m2 06/18/2021 4:59 PM [facility] Comment:Effective January 242020 eGFRcr in adults is calculated using the 2020 CKD-EPI creatinine equation which includes age and gender (Alivia et al., NEJM, DOI: 10.1056/[id number]) Blood VENOUS LINE / Unknown Venipuncture / Unknown 06/18/2021 4:31 PM CDT 06/18/2021 4:38 PM CDT us Yong Renteria MD LAB - BLOOD ORDERABLES Final Re sult [facility] [address] [place] [address], [facility] [phone] from Last 3 Months or Most Recently Relevant to Health Maintenance Insurance [facility] MEDICARE Advance Directives For more information, please contact: [phone] * Full Code (Latest Code Status on File) Date Activated Date Inactivated Comments 06/18/2021 10:24 PM 06/19/2021 6:58 PM All basic a nd advanced life-sustaining interventions are performed as appropriate Question Answer Comments Code status determined by: Discussion with patie nt/ legal decision maker Care Teams Dressage Judge Relationship Specialty Start Date End Date Ismael Meadows MD [facility] [address] [facility] [place] [address] PCP - General Family Medicine 06/19/21
--- OUTSIDE RECORDS SUMMARY | 2024-01-06 15:09 | XMS_ITS | Referral Summary ---
Author Organization [facility] Address [address] [place] [address] Care Team Providers Care Political Geographer Name Role Phone Unknown, Md Primary Care Provider Unavailabl e Unknown, Md Unavailable Unavailable Allergies Active Allergy Reactions Criticality Noted Date Comments Iodinated Contrast Media Hives High 07/30/2009 Lisinopril Cough 01/10/2021 Tetracycline Rash Medium 07/30/2009 Medications vitamin e (AQUASOL E) 400 unit oral capsule Daily. Active aspirin 81 mg oral enteric coated tablet Daily. 1 Active multivitamin (MULTI-DAY) oral tablet Daily. 1 Active calcium carbonate-vitamin D3 500 mg, 1250 mg,-200 units (OSCAL-D) oral tablet take 1 by Oral route every day Active fish oil (FISH OIL) 360-1,200 mg oral Cap Daily. Active cholecalciferol (VITAMIN D3) 25 mcg (1,000 unit) oral Cap Take 1,000 Units by mouth once daily. Active acetaminophen (TYLENOL) 500 mg oral tablet Take 1,000 mg by mouth every 6 (six) hours as needed. Active amLODIPine (NORVASC) 10 mg oral tabletIndications:E ssential hypertension Take 1 tablet (10 mg) by mouth once daily. 30 tablet 2 Active rosuvastatin (CRESTOR) 5 mg oral tabletIndications:O ther hyperlipidemia Take 1 tablet (5 mg) by mouth every morning. 30 tablet 2 Active estradioL (ESTRACE) 0.5 mg oral tabletIndications:E strogen deficiency,Symptoma tic menopausal or female climacteric states Take 1 tablet (0.5 mg) by mouth once daily. 30 tablet 2 Active Active Problems Problem Noted Date Diagnosed [...] drink = 0.6 oz pur e alcohol) Comments No Sex and Gender Information Value Date Recorded Sex Assigned at Not on file Legal Sex Female 4:27 PM CDT Gender Identity Not on file Sexual Orientation Not on file Last Filed Vital Signs Vital Sign Reading Time Taken Comments Blood Pressure 140/76 01/10/2021 10:56 AM DIGITAL FORENSIC ANALYST Pulse 74 01/10/2021 10:16 AM DIGITAL FORENSIC ANALYST Temperature - - Respiratory Rate - - Oxygen Saturation 97% 01/10/2021 10:16 AM DIGITAL FORENSIC ANALYST Inhaled Oxygen Concentration - - Weight 64 kg (141 lb) 01/10/2021 10:16 AM DIGITAL FORENSIC ANALYST Height 160.7 cm (5' 3.25) 01/10/2021 10:16 AM Pablo ROSALES Body Mass Index 24.78 01/10/2021 10:16 AM DIGITAL FORENSIC ANALYST Plan of Treatment Not on file Procedures Procedure Name Priority Date/Time Associated Diagnosis Comments XR BONE DENSITY-SPINE,HIP & FOREARM Routine 01/15/2021 12:48 PM DIGITAL FORENSIC ANALYST Osteopenia, unspecified location from Last 3 Months or Most Recently Relevant to Health Maintenance Results * XR BONE DENSITY-SPINE,HIP & FOREARM (01/15/2021 12:48 PM DIGITAL FORENSIC ANALYST) Anatomical Region Laterality Modality Extremity Radiographic Shannon ging 01/15/2021 12:5 6 PM DIGITAL FORENSIC ANALYST Impressions 01/15/2021 12:57 PM DIGITAL FORENSIC ANALYST IMPRESSION: Osteopenia. WHO Classification of bone density for post-menopausal women, and men over 50 years of age, is as follows: Normal bone density: T score greater than -1.0. Osteopenia (Low bone density): T score between -1.0 and -2.5. Osteoporosis: T score less than -2.5. ?? REPORT SIGNED BY DR. Alexander Dos Santos Narrative 01/15/2021 12:57 PM DIGITAL FORENSIC ANALYST EXAM: DEXA BONE DENSITY STUDY DATE: 01/15/2021 12:20 PM COMPARISON: 10/11/2018 CLINICAL DATA: Osteoporosis screening. Post-menopausal. TECHNIQUE: A bone density evaluation using DEXA (dual energy x-ray absorptiometry) was performed for your patient at the [facility] in [place] using a Hologic (Discovery) unit. FINDINGS: Lumbar [...] performed for your patient at the [facility] using a Hologic (Discovery) unit. [...] Dos Santos Ismael Meadows MD XRAY ORDERABLE Final Resu lt from Last 3 Months or Most Recently Relevant to Health Maintenance Insurance [facility] MEDICARE ADVANTAGE Care Teams Political Geographer Relationship Specialty Start Date End Date Unknown, NO ADDRESS/PHONE/FAX AFFILIATED PCP - General 12/18/22 Unknown, NO ADDRESS/PHONE/FAX AFFILIATED PCP - Primary Care Clinic 12/18/22
--- OUTSIDE RECORDS SUMMARY | 2024-01-06 15:09 | XMS_ITS | Clinical Summary ---
Author Organization [facility] Address [address] [place] [address] Care Team Providers Care Esthetic Dermatologist Name Role Phone Unknown, Md Primary Care [...] Coronary Heart Disease Mother Heart Disease Mother [place] Allergies Sister Relation Status Comments Brother Daughter [...] Comments Blood Pressure 140/76 01/10/2021 10:56 AM SOLAR PROJECT ENGINEER Pulse 74 01/10/2021 10:16 AM SOLAR PROJECT ENGINEER Temperature - - Respiratory Rate - - Oxygen Saturation 97% 01/10/2021 10:16 AM SOLAR PROJECT ENGINEER Inhaled Oxygen Concentration - - Weight 64 kg (141 lb) 01/10/2021 10:16 AM SOLAR PROJECT ENGINEER Height 160.7 cm (5' 3.25) 01/10/2021 10:[address] Body Mass Index 24.78 01/10/2021 10:16 AM SOLAR PROJECT ENGINEER Plan of Treatment Health Maintenance Due Date [...] DENSITY-SPINE,HIP & FOREARM Routine 01/15/2021 12:48 PM SOLAR PROJECT ENGINEER Osteopenia, unspecified location from Last 3 Months or Most Recently Relevant to Health Maintenance Results * XR BONE DENSITY-SPINE,HIP & FOREARM (01/15/2021 12:48 PM SOLAR PROJECT ENGINEER) Anatomical Region Laterality Modality Extremity Radiographic Shannon ging 01/15/2021 12:5 6 PM SOLAR PROJECT ENGINEER Impressions 01/15/2021 12:57 PM SOLAR PROJECT ENGINEER IMPRESSION: Osteopenia. WHO Classification of bone density for post-menopausal women, and men over 50 years of age, is as follows: Normal bone density: T score greater than -1.0. Osteopenia (Low bone density): T score between -1.0 and -2.5. Osteoporosis: T score less than -2.5. ?? REPORT SIGNED BY DR. Alexander Dos Santos Narrative 01/15/2021 12:57 PM SOLAR PROJECT ENGINEER EXAM: DEXA BONE DENSITY STUDY DATE: 01/15/2021 12:20 PM COMPARISON: 10/11/2018 CLINICAL DATA: Osteoporosis screening. Post-menopausal. TECHNIQUE: A bone density evaluation using DEXA (dual energy x-ray absorptiometry) was performed for your patient at the [facility] using a Hologic (Discovery) unit. FINDINGS: Lumbar [...] was performed for your patient at the [facility] using a Hologic (Discovery) unit. FINDINGS: [...] Most Recently Relevant to Health Maintenance Insurance [facility] MEDICARE ADVANTAGE Care Teams Esthetic Dermatologist Relationship Specialty Start Date End Date Unknown, NO ADDRESS/PHONE/FAX AFFILIATED PCP - General 12/18/22 Unknown, NO ADDRESS/PHONE/FAX AFFILIATED PCP - Primary Care Clinic 12/18/22
--- OUTSIDE RECORDS SUMMARY | 2024-01-06 15:09 | XMS_ITS | Clinical Summary ---
Author Organization [facility] Address [place], [place] [address] Care Team Providers Care Physical Therapist Aide Name Role Phone Pcp, No Primary Care [...] Influenza for age 65+ 10/25/2023 Care Teams Physical Therapist Aide Relationship Specialty Start Date End Date Pcp, No . PCP - General 06/18/21
== END 2024-01-06 15:07 | disposition home or self-care (01) ==
PROVIDERS: PCP Internal Medicine; Visit Provider Internal Medicine
DX: E83.52 Hypercalcemia (principal)
CPT/HCPCS: 84165

== ENCOUNTER 2024-01-08 09:31 | Outpatient (CLI) | payer MEDICARE, SELFPAY ==
--- OUTSIDE RECORDS SUMMARY | 2024-01-13 09:32 | XMS_ITS | Clinical Summary ---
Author Organization [facility] Address [place], [place] [address] Care Team Providers Care Quality Control Technician Name Role Phone Pcp, No Primary Care [...] 78 06/18/2021 1:24 PM CDT Temperature 36.8 C (98.2 F) 06/18/2021 1:24 PM CDT Respiratory Rate 16 06/18/2021 1:24 PM CDT [...] Influenza for age 65+ 10/25/2023 Care Teams Quality Control Technician Relationship Specialty Start Date End Date Pcp, No . PCP - General 06/18/21
--- OUTSIDE RECORDS SUMMARY | 2024-01-13 09:33 | XMS_ITS | Referral Summary ---
Author Organization [facility] Address [address] [place] [address] Care Team Providers Care Early Childhood Coordinator Name Role Phone Unknown, Md Primary Care [...] Comments Blood Pressure 140/76 01/10/2021 10:56 AM RIDING TEACHER Pulse 74 01/10/2021 10:16 AM RIDING TEACHER Temperature - - Respiratory Rate - - Oxygen Saturation 97% 01/10/2021 10:16 AM RIDING TEACHER Inhaled Oxygen Concentration - - Weight 64 kg (141 lb) 01/10/2021 10:16 AM RIDING TEACHER Height 160.7 cm (5' 3.25) 01/10/2021 10:16 AM Pablo ROSALES Body Mass Index 24.78 01/10/2021 10:16 AM RIDING TEACHER Plan of Treatment Not on file Procedures Procedure Name Priority Date/Time Associated Diagnosis Comments XR BONE DENSITY-SPINE,HIP & FOREARM Routine 01/15/2021 12:48 PM RIDING TEACHER Osteopenia, unspecified location from Last 3 Months or Most Recently Relevant to Health Maintenance Results * XR BONE DENSITY-SPINE,HIP & FOREARM (01/15/2021 12:48 PM RIDING TEACHER) Anatomical Region Laterality Modality Extremity Radiographic Shannon ging 01/15/2021 12:5 6 PM RIDING TEACHER Impressions 01/15/2021 12:57 PM RIDING TEACHER IMPRESSION: Osteopenia. WHO Classification of bone density for post-menopausal women, and men over 50 years of age, is as follows: Normal bone density: T score greater than -1.0. Osteopenia (Low bone density): T score between -1.0 and -2.5. Osteoporosis: T score less than -2.5. REPORT SIGNED BY DR. Alexander Dos Santos Narrative 01/15/2021 12:57 PM RIDING TEACHER EXAM: DEXA BONE DENSITY STUDY DATE: 01/15/2021 12:20 PM COMPARISON: 10/11/2018 CLINICAL DATA: Osteoporosis screening. Post-menopausal. TECHNIQUE: A bone density evaluation using DEXA (dual energy x-ray absorptiometry) was performed for your patient at the [facility] in [place] using a Hologic (Discovery) unit. FINDINGS: Lumbar [...] was performed for your patient at the [facility] using a Hologic (Discovery) unit. [...] Most Recently Relevant to Health Maintenance Insurance [employer] MEDICARE ADVANTAGE Care Teams Early Childhood Coordinator Relationship Specialty Start Date End Date Unknown, NO ADDRESS/PHONE/FAX AFFILIATED PCP - General 12/18/22 Unknown, NO ADDRESS/PHONE/FAX AFFILIATED PCP - Primary Care Clinic 12/18/22
--- OUTSIDE RECORDS SUMMARY | 2024-01-13 09:33 | XMS_ITS | Referral Summary ---
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 Gender Identity Not on file Sexual Orientation Not on file Last Filed Vital Signs Vital Sign Reading Time Taken Comments Blood Pressure 130/63 06/19/2021 8:06 AM CDT Pulse 66 06/19/2021 8:06 AM CDT Temperature 36.4 C (97.6 F) 06/19/2021 8:06 AM CDT Respiratory Rate 18 06/19/2021 8:06 AM CDT [...] 136 - 145 mmol/L 06/18/2021 4:59 PM [facility] Potassium 3.9 3.5 - 5.0 mmol/L 06/18/2021 4:59 PM [facility] Chloride 105 98 - 107 mmol/L 06/18/2021 4:59 PM [facility] Carbon Dioxide (CO2) 23 22 - 31 mmol/L 06/18/2021 4:59 PM [facility] Anion Gap 13 5 - 18 mmol/L 06/18/2021 4:59 PM [facility] Urea Nitrogen 19 8 - 28 mg/dL 06/18/2021 4:59 PM [facility] Creatinine 0.76 0.60 - 1.10 mg/dL 06/18/2021 4:59 PM [facility] Calcium 10.4 8.5 - 10.5 mg/dL 06/18/2021 4:59 PM [facility] Glucose 94 70 - 125 mg/dL 06/18/2021 4:59 PM [facility] Alkaline Phosphatase 112 45 - 120 U/L 06/18/2021 4:59 PM [facility] AST 25 0 - 40 U/L 06/18/2021 4:59 PM [facility] ALT 17 0 - 45 U/L 06/18/2021 4:59 PM CDT [facility] Protein Total 7.5 6.0 - 8.0 g/dL 06/18/2021 4:59 PM CDT [facility] Albumin 4.3 3.5 - 5.0 g/dL 06/18/2021 4:59 PM CDT [facility] Bilirubin Total 0.4 0.0 - 1.0 mg/dL 06/18/2021 4:59 PM CDT [facility] GFR Estimate 80 >60 mL/min/1.7 3m2 06/18/2021 4:59 PM T [facility] Comment:Effective January 242020 eGFRcr in adults is calculated using the 2020 CKD-EPI creatinine equation which includes age and gender (Alivia et al., NEJM, DOI: 10.1056/FUFXsl3121324) Blood VENOUS LINE / Unknown Venipuncture / Unknown 06/18/2021 4:31 PM CDT 06/18/2021 4:38 PM CDT us Yong Renteria MD LAB - BLOOD ORDERABLES Final Re sult [facility] [address] [place] [address], [facility] [phone] from Last 3 Months or Most Recently Relevant to Health Maintenance Insurance [facility] MEDICARE Advance Directives For more information, please contact: [phone] * Full Code (Latest Code Status on File) Date Activated Date Inactivated Comments 06/18/2021 10:24 PM 06/19/2021 6:58 PM All basic a nd advanced life-sustaining interventions are performed as appropriate Question Answer Comments Code status determined by: Discussion with eleni nt/ legal decision maker Care Teams Acupuncture Physician Relationship Specialty Start Date End Date Ismael Meadows MD [facility] [id number] [place] [address] [place] [phone] PCP - General Family Medicine 06/19/21
--- OUTSIDE RECORDS SUMMARY | 2024-01-13 09:33 | XMS_ITS | Clinical Summary ---
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 Gender Identity Not on file Sexual Orientation [...] 136 - 145 mmol/L 06/18/2021 4:59 PM [facility] Potassium 3.9 3.5 - 5.0 mmol/L 06/18/2021 4:59 PM [facility] Chloride 105 98 - 107 mmol/L 06/18/2021 4:59 PM [facility] Carbon Dioxide (CO2) 23 22 - 31 mmol/L 06/18/2021 4:59 PM [facility] Anion Gap 13 5 - 18 mmol/L 06/18/2021 4:59 PM [facility] Urea Nitrogen 19 8 - 28 mg/dL 06/18/2021 4:59 PM [facility] Creatinine 0.76 0.60 - 1.10 mg/dL 06/18/2021 4:59 PM [facility] Calcium 10.4 8.5 - 10.5 mg/dL 06/18/2021 4:59 PM [facility] Glucose 94 70 - 125 mg/dL 06/18/2021 4:59 PM [facility] Alkaline Phosphatase 112 45 - 120 U/L 06/18/2021 4:59 PM [facility] AST 25 0 - 40 U/L 06/18/2021 4:59 PM [facility] ALT 17 0 - 45 U/L 06/18/2021 4:59 PM [facility] Protein Total 7.5 6.0 - 8.0 g/dL 06/18/2021 4:59 PM [facility] Albumin 4.3 3.5 - 5.0 g/dL 06/18/2021 4:59 PM [facility] Bilirubin Total 0.4 0.0 - 1.0 mg/dL 06/18/2021 4:59 PM [facility] GFR Estimate 80 >60 mL/min/1.7 3m2 06/18/2021 4:59 PM [facility] Comment:Effective January 242020 eGFRcr in adults is calculated using the 2020 CKD-EPI creatinine equation which includes age and gender (Alivia et al., NEJ, DOI: 10.1056/HSWXcb5966842) Blood VENOUS LINE / Unknown Venipuncture / Unknown 06/18/2021 4:31 PM CDT 06/18/2021 4:38 PM CDT us Yong Renteria MD LAB - BLOOD ORDERABLES Final Re sult [facility] [address] [address], [facility] [phone] from Last 3 Months or Most Recently Relevant to Health Maintenance Insurance [facility] MEDICARE Advance Directives For more information, please contact: [phone] * Full Code (Latest Code Status on File) Date Activated Date Inactivated Comments 06/18/2021 10:24 PM 06/19/2021 6:58 PM All basic a nd advanced life-sustaining interventions are performed as appropriate Question Answer Comments Code status determined by: Discussion with patie nt/ legal decision maker Care Teams Leadership Development Manager Relationship Specialty Start Date End Date Ismael Meadows MD [facility] [id number] [place] [address] [place] [id number] PCP - General Family Medicine 06/19/21
--- OUTSIDE RECORDS SUMMARY | 2024-01-13 09:33 | XMS_ITS | Clinical Summary ---
Author Organization [facility] Address [address] [place] [address] Care Team Providers Care Senior Dentist Name Role Phone Unknown, Md Primary Care [...] Coronary Heart Disease Mother Heart Disease Mother [place] Allergies Sister Relation Status Comments Brother Daughter [...] Comments Blood Pressure 140/76 01/10/2021 10:56 AM SPRING FORMER MACHINE Pulse 74 01/10/2021 10:16 AM SPRING FORMER MACHINE Temperature - - Respiratory Rate - - Oxygen Saturation 97% 01/10/2021 10:16 AM SPRING FORMER MACHINE Inhaled Oxygen Concentration - - Weight 64 kg (141 lb) 01/10/2021 10:16 AM SPRING FORMER MACHINE Height 160.7 cm (5' 3.25) 01/10/2021 10:[address] Body Mass Index 24.78 01/10/2021 10:16 AM SPRING FORMER MACHINE Plan of Treatment Health Maintenance Due Date [...] DENSITY-SPINE,HIP & FOREARM Routine 01/15/2021 12:48 PM SPRING FORMER MACHINE Osteopenia, unspecified location from Last 3 Months or Most Recently Relevant to Health Maintenance Results * XR BONE DENSITY-SPINE,HIP & FOREARM (01/15/2021 12:48 PM SPRING FORMER MACHINE) Anatomical Region Laterality Modality Extremity Radiographic Shannon ging 01/15/2021 12:5 6 PM SPRING FORMER MACHINE Impressions 01/15/2021 12:57 PM SPRING FORMER MACHINE IMPRESSION: Osteopenia. WHO Classification of bone density for post-menopausal women, and men over 50 years of age, is as follows: Normal bone density: T score greater than -1.0. Osteopenia (Low bone density): T score between -1.0 and -2.5. Osteoporosis: T score less than -2.5. REPORT SIGNED BY DR. Alexander Dos Santos Narrative 01/15/2021 12:57 PM SPRING FORMER MACHINE EXAM: DEXA BONE DENSITY STUDY DATE: 01/15/2021 12:20 PM COMPARISON: 10/11/2018 CLINICAL DATA: Osteoporosis screening. Post-menopausal. TECHNIQUE: A bone density evaluation using DEXA (dual energy x-ray absorptiometry) was performed for your patient at the [facility] using a Hologic (Discovery) unit. FINDINGS: Lumbar [...] was performed for your patient at the [facility] using a Hologic (Discovery) unit. FINDINGS: [...] REPORT SIGNED BY DR. Alexander Dos Santos us Ismael Meadows MD XRAY ORDERABLE Final Resu lt from Last 3 Months or Most Recently Relevant to Health Maintenance Insurance [facility] MEDICARE ADVANTAGE Care Teams Senior Dentist Relationship Specialty Start Date End Date Unknown, NO ADDRESS/PHONE/FAX AFFILIATED PCP - General 12/18/22 Unknown, NO ADDRESS/PHONE/FAX AFFILIATED PCP - Primary Care Clinic 12/18/22
== END 2024-01-08 09:32 | disposition home or self-care (01) ==
LOC: NFLDREF 01-13 09:31
PROVIDERS: PCP Internal Medicine; Referring Provider Internal Medicine; Visit Provider Internal Medicine
DX: E83.52 Hypercalcemia (principal)
CPT/HCPCS: 83520; 84156; 86335

== ENCOUNTER 2024-01-28 08:22 | Outpatient (CLI) | payer MEDICARE, SELFPAY ==
--- OUTSIDE RECORDS SUMMARY | 2024-01-28 08:25 | XMS_ITS | Referral Summary ---
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 Gender Identity Not on file Sexual Orientation [...] 136 - 145 mmol/L 06/18/2021 4:59 PM [facility] Potassium 3.9 3.5 - 5.0 mmol/L 06/18/2021 4:59 PM [facility] Chloride 105 98 - 107 mmol/L 06/18/2021 4:59 PM [facility] Carbon Dioxide (CO2) 23 22 - 31 mmol/L 06/18/2021 4:59 PM [facility] Anion Gap 13 5 - 18 mmol/L 06/18/2021 4:59 PM [facility] Urea Nitrogen 19 8 - 28 mg/dL 06/18/2021 4:59 PM [facility] Creatinine 0.76 0.60 - 1.10 mg/dL 06/18/2021 4:59 PM [facility] Calcium 10.4 8.5 - 10.5 mg/dL 06/18/2021 4:59 PM [facility] Glucose 94 70 - 125 mg/dL 06/18/2021 4:59 PM [facility] Alkaline Phosphatase 112 45 - 120 U/L 06/18/2021 4:59 PM [facility] AST 25 0 - 40 U/L 06/18/2021 4:59 PM [facility] ALT 17 0 - 45 U/L 06/18/2021 4:59 PM CDT [facility] Protein Total 7.5 6.0 - 8.0 g/dL 06/18/2021 4:59 PM CDT [facility] Albumin 4.3 3.5 - 5.0 g/dL 06/18/2021 4:59 PM CDT [facility] Bilirubin Total 0.4 0.0 - 1.0 mg/dL 06/18/2021 4:59 PM CDT [facility] GFR Estimate 80 >60 mL/min/1.7 3m2 06/18/2021 4:59 PM T [facility] Comment:Effective January 242020 eGFRcr in adults is calculated using the 2020 CKD-EPI creatinine equation which includes age and gender (Alivia et al., NEJM, DOI: 10.1056/SRWLka7443817) Blood VENOUS LINE / Unknown Venipuncture / Unknown 06/18/2021 4:31 PM CDT 06/18/2021 4:38 PM CDT us Yong Renteria MD LAB - BLOOD ORDERABLES Final Re sult [facility] [address] [facility] [address], [facility] [phone] from Last 3 Months or Most Recently Relevant to Health Maintenance Insurance [facility] MEDICARE Advance Directives For more information, please contact: [phone] * Full Code (Latest Code Status on File) Date Activated Date Inactivated Comments 06/18/2021 10:24 PM 06/19/2021 6:58 PM All basic a nd advanced life-sustaining interventions are performed as appropriate Question Answer Comments Code status determined by: Discussion with eleni nt/ legal decision maker Care Teams Occupational Therapy Department Chair Relationship Specialty Start Date End Date Ismael Meadows MD [facility] [id number] [place] [address] [place] [id number] PCP - General Family Medicine 06/19/21
--- OUTSIDE RECORDS SUMMARY | 2024-01-28 08:25 | XMS_ITS | Referral Summary ---
Author Organization [facility] Address [address] [place] [address] Care Team Providers Care Personal Care Attendant Name Role Phone Unknown, Md Primary [...] Comments Blood Pressure 140/76 01/10/2021 10:56 AM 2ND PRESSMAN Pulse 74 01/10/2021 10:16 AM 2ND PRESSMAN Temperature - - Respiratory Rate - - Oxygen Saturation 97% 01/10/2021 10:16 AM 2ND PRESSMAN Inhaled Oxygen Concentration - - Weight 64 kg (141 lb) 01/10/2021 10:16 AM 2ND PRESSMAN Height 160.7 cm (5' 3.25) 01/10/2021 10:16 AM Pablo ROSALES Body Mass Index 24.78 01/10/2021 10:16 AM 2ND PRESSMAN Plan of Treatment Not on file Procedures Procedure Name Priority Date/Time Associated Diagnosis Comments XR BONE DENSITY-SPINE,HIP & FOREARM Routine 01/15/2021 12:48 PM 2ND PRESSMAN Osteopenia, unspecified location from Last 3 Months or Most Recently Relevant to Health Maintenance Results * XR BONE DENSITY-SPINE,HIP & FOREARM (01/15/2021 12:48 PM 2ND PRESSMAN) Anatomical Region Laterality Modality Extremity Radiographic Sahnnon ging 01/15/2021 12:5 6 PM 2ND PRESSMAN Impressions 01/15/2021 12:57 PM 2ND PRESSMAN IMPRESSION: Osteopenia. WHO Classification of bone density for post-menopausal women, and men over 50 years of age, is as follows: Normal bone density: T score greater than -1.0. Osteopenia (Low bone density): T score between -1.0 and -2.5. Osteoporosis: T score less than -2.5. REPORT SIGNED BY DR. Alexander Dos Santos Narrative 01/15/2021 12:57 PM 2ND PRESSMAN EXAM: DEXA BONE DENSITY STUDY DATE: 01/15/2021 12:20 PM COMPARISON: 10/11/2018 CLINICAL DATA: Osteoporosis screening. Post-menopausal. TECHNIQUE: A bone density evaluation using DEXA (dual energy x-ray absorptiometry) was performed for your patient at the [facility] in [place] using a Hologic (Discovery) unit. FINDINGS: Lumbar [...] was performed for your patient at the [facility] using a Hologic (Discovery) unit. FINDINGS: [...] Recently Relevant to Health Maintenance Insurance [facility] MEDICARE ADVANTAGE Care Teams Personal Care Attendant Relationship Specialty Start Date End Date Unknown, NO ADDRESS/PHONE/FAX AFFILIATED PCP - General 12/18/22 Unknown, NO ADDRESS/PHONE/FAX AFFILIATED PCP - Primary Care Clinic 12/18/22
--- OUTSIDE RECORDS SUMMARY | 2024-01-28 08:25 | XMS_ITS | Clinical Summary ---
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 Gender Identity Not on file Sexual Orientation [...] 136 - 145 mmol/L 06/18/2021 4:59 PM [facility] Potassium 3.9 3.5 - 5.0 mmol/L 06/18/2021 4:59 PM [facility] Chloride 105 98 - 107 mmol/L 06/18/2021 4:59 PM [facility] Carbon Dioxide (CO2) 23 22 - 31 mmol/L 06/18/2021 4:59 PM [facility] Anion Gap 13 5 - 18 mmol/L 06/18/2021 4:59 PM [facility] Urea Nitrogen 19 8 - 28 mg/dL 06/18/2021 4:59 PM [facility] Creatinine 0.76 0.60 - 1.10 mg/dL 06/18/2021 4:59 PM [facility] Calcium 10.4 8.5 - 10.5 mg/dL 06/18/2021 4:59 PM [facility] Glucose 94 70 - 125 mg/dL 06/18/2021 4:59 PM [facility] Alkaline Phosphatase 112 45 - 120 U/L 06/18/2021 4:59 PM [facility] AST 25 0 - 40 U/L 06/18/2021 4:59 PM [facility] ALT 17 0 - 45 U/L 06/18/2021 4:59 PM [facility] Protein Total 7.5 6.0 - 8.0 g/dL 06/18/2021 4:59 PM [facility] Albumin 4.3 3.5 - 5.0 g/dL 06/18/2021 4:59 PM [facility] Bilirubin Total 0.4 0.0 - 1.0 mg/dL 06/18/2021 4:59 PM [facility] GFR Estimate 80 >60 mL/min/1.7 3m2 06/18/2021 4:59 PM [facility] Comment:Effective January 242020 eGFRcr in adults is calculated using the 2020 CKD-EPI creatinine equation which includes age and gender (Alivia et al., NEJ, DOI: 10.1056/BEIEnc8141577) Blood VENOUS LINE / Unknown Venipuncture / Unknown 06/18/2021 4:31 PM CDT 06/18/2021 4:38 PM CDT us Yong Renteria MD LAB - BLOOD ORDERABLES Final Re sult [facility] [address] [place] [address], [facility] [phone] from Last 3 Months or Most Recently Relevant to Health Maintenance Insurance [facility] MEDICARE Advance Directives For more information, please contact: [phone] * Full Code (Latest Code Status on File) Date Activated Date Inactivated Comments 06/18/2021 10:24 PM 06/19/2021 6:58 PM All basic a nd advanced life-sustaining interventions are performed as appropriate Question Answer Comments Code status determined by: Discussion with patie nt/ legal decision maker Care Teams Ups Driver Relationship Specialty Start Date End Date Ismael Meadows MD [facility] [id number] [place] [address] [place] [id number] PCP - General Family Medicine 06/19/21
--- OUTSIDE RECORDS SUMMARY | 2024-01-28 08:25 | XMS_ITS | Clinical Summary ---
Author Organization [facility] Address [address] [place] [address] Care Team Providers Care Brick Setter Operator Name Role Phone Unknown, Md Primary [...] Coronary Heart Disease Mother Heart Disease Mother [place] Allergies Sister Relation Status Comments Brother Daughter [...] Comments Blood Pressure 140/76 01/10/2021 10:56 AM VENETIAN BLIND TAPE CUTTER Pulse 74 01/10/2021 10:16 AM VENETIAN BLIND TAPE CUTTER Temperature - - Respiratory Rate - - Oxygen Saturation 97% 01/10/2021 10:16 AM VENETIAN BLIND TAPE CUTTER Inhaled Oxygen Concentration - - Weight 64 kg (141 lb) 01/10/2021 10:16 AM VENETIAN BLIND TAPE CUTTER Height 160.7 cm (5' 3.25) 01/10/2021 10:[address] Body Mass Index 24.78 01/10/2021 10:16 AM VENETIAN BLIND TAPE CUTTER Plan of Treatment Health Maintenance Due Date [...] DENSITY-SPINE,HIP & FOREARM Routine 01/15/2021 12:48 PM VENETIAN BLIND TAPE CUTTER Osteopenia, unspecified location from Last 3 Months or Most Recently Relevant to Health Maintenance Results * XR BONE DENSITY-SPINE,HIP & FOREARM (01/15/2021 12:48 PM VENETIAN BLIND TAPE CUTTER) Anatomical Region Laterality Modality Extremity Radiographic Shannon ging 01/15/2021 12:5 6 PM VENETIAN BLIND TAPE CUTTER Impressions 01/15/2021 12:57 PM VENETIAN BLIND TAPE CUTTER IMPRESSION: Osteopenia. WHO Classification of bone density for post-menopausal women, and men over 50 years of age, is as follows: Normal bone density: T score greater than -1.0. Osteopenia (Low bone density): T score between -1.0 and -2.5. Osteoporosis: T score less than -2.5. REPORT SIGNED BY DR. Alexander Dos Santos Narrative 01/15/2021 12:57 PM VENETIAN BLIND TAPE CUTTER EXAM: DEXA BONE DENSITY STUDY DATE: 01/15/2021 12:20 PM COMPARISON: 10/11/2018 CLINICAL DATA: Osteoporosis screening. Post-menopausal. TECHNIQUE: A bone density evaluation using DEXA (dual energy x-ray absorptiometry) was performed for your patient at the [facility] using a Hologic (Discovery) unit. FINDINGS: [...] was performed for your patient at the [facility] using a Hologic (Discovery) unit. FINDINGS: Lumbar [...] Most Recently Relevant to Health Maintenance Insurance [facility] MEDICARE ADVANTAGE Care Teams Brick Setter Operator Relationship Specialty Start Date End Date Unknown, NO ADDRESS/PHONE/FAX AFFILIATED PCP - General 12/18/22 Unknown, NO ADDRESS/PHONE/FAX AFFILIATED PCP - Primary Care Clinic 12/18/22
--- OUTSIDE RECORDS SUMMARY | 2024-01-28 08:25 | XMS_ITS | Clinical Summary ---
Author Organization [facility] Address [place], [place] [address] Care Team Providers Care Retort Furnace Operator Name Role Phone Pcp, No Primary Care [...] Influenza for age 65+ 10/25/2023 Care Teams Retort Furnace Operator Relationship Specialty Start Date End Date Pcp, No . PCP - General 06/18/21
--- NOTE | 2024-01-28 08:45 | CRLHL7_ITS ---
For Patients: As a result of the Century Cures Act, medical imaging exams and procedure reports are released immediately into your electronic medical record. You may view this report before your referring provider. If you have questions, please contact your health care provider. BILATERAL SCREENING MAMMOGRAM WITH COMPUTER-AIDED DETECTION AND TOMOSYNTHESIS TECHNIQUE: CC and MLO views were obtained. These mammographic images have been obtained using full-field digital technique. These mammographic images were interpreted with the benefit of computer-aided detection. Breast Tomosynthesis was used in this interpretation. COMPARISON FILM: 11/07/22. FINDINGS: The breasts are extremely dense, which lowers the sensitivity of mammography. IMPRESSION: There is no radiographic evidence for malignancy. ASSESSMENT: BI-RADS Category 2: Benign RECOMMENDATION: Routine screening mammogram in 1 year. A lay language report of this examination will be provided to the patient. Leon Montero M.D. Diagnostic Radiologist [email or web address] SP/Dictated by: Leon Montero MD @ 02/01/2024 12:45:00 PM (Electronically Signed)
== END 2024-01-28 08:23 | disposition home or self-care (01) ==
LOC: MAMMO 08:22
PROVIDERS: PCP Family Medicine; Visit Provider Internal Medicine
DX: Z12.31 Encounter for screening mammogram for malignant neoplasm of breast (principal); R92.333 Mammographic heterogeneous density, bilateral breasts
CPT/HCPCS: 77063; 77067